=== PATIENT | male | born 1995 | race Caucasian/White ===

== ENCOUNTER → 2016-08-10 | Outpatient (CLI) | payer BC ==
--- NOTE | 2016-08-10 15:34 | DIAGNOSTIC IMAGING REPORT ---
RIGHT SHOULDER 3 VIEWS HISTORY: RIGHT SHOULDER PAIN Right COMPARISON: None. FINDINGS: There is no fracture or dislocation. Soft tissues are unremarkable. The right clavicle is intact. Right posterior rib deformities may be developmental or due to old, healed fractures. IMPRESSION: No acute fracture or dislocation within the right shoulder. Electronically signed by: Kt Bhatia M.D. 08/10/2016 3:33 PM Dictated Date/Time: 08/10/2016 3:31 PM
== END | disposition home or self-care (01) ==
LOC: C.RDSM 08:09
PROVIDERS: ATTEND Family Medicine
DX: M25.511 Pain in right shoulder (principal)

== ENCOUNTER → 2016-10-29 | Outpatient (CLI) | payer BC ==
--- NOTE | 2016-10-29 15:43 | DIAGNOSTIC IMAGING REPORT ---
MRI OF THE RIGHT SHOULDER CLINICAL HISTORY: Right shoulder pain. COMPARISON STUDY: Radiographs of the right shoulder dated 08/10/2016. TECHNIQUE: MRI of the right shoulder was performed utilizing various T1 and T2 weighted sequences in the axial, sagittal, coronal planes. IV contrast was not administered for this examination. The examination is modestly degraded by motion artifact. FINDINGS: Rotator cuff: The supraspinatus tendon appears intact. There is mild undersurface tearing suggested involving the infraspinatus tendon at the leading edge. This is best seen on coronal image #9 and sagittal image #4. No full-thickness tear is seen. The teres minor and subscapularis tendons are intact. There is trace subdeltoid bursal fluid. The acromioclavicular joint is unremarkable. Biceps tendon: The long head of the biceps tendon is normal in signal intensity and located within the bicipital groove. The anchor is maintained. Labrum: Grossly intact. Shoulder joint: There is no joint effusion. The articular cartilage over the glenoid is well maintained. Normal marrow signal intensity is preserved of the visualized osseous structures. Musculature and soft tissues: The musculature of the shoulder is normal in bulk and signal intensity. No atrophy is seen. IMPRESSION: 1. There is a partial-thickness undersurface tear suspected involving the infraspinatus tendon at the leading edge no full-thickness tear is seen. 2. The remainder of the rotator cuff appears intact. 3. No bony abnormality is seen. 4. There is trace nonspecific subdeltoid bursal fluid. Electronically signed by: Braulio Whitlock M.D. 10/29/2016 3:42 PM Dictated Date/Time: 10/29/2016 3:25 PM
== END | disposition home or self-care (01) ==
LOC: C.MRI 14:21
PROVIDERS: ATTEND Family Medicine
DX: M25.511 Pain in right shoulder (principal); R93.7 Abnormal findings on diagnostic imaging of other parts of musculoskeletal system

== ENCOUNTER → 2017-09-20 | Outpatient (CLI) | payer BC ==
--- NOTE | 2017-09-20 15:59 | DIAGNOSTIC IMAGING REPORT ---
CT PELVIS W/IV AND ORAL CONT (CT) CT DOSE: 175.21 mGy.cm CLINICAL HISTORY: Left leg swelling. Possible pelvic mass or blood clot. TECHNIQUE: The patient was scanned following administration of dilute oral contrast. The patient was scanned in a dynamic helical fashion following administration 115 cc of Optiray 320. A 2 minute delay was utilized to allow venous opacification. A dose lowering technique was utilized adhering to the principles of ALARA. COMPARISON STUDY: None. FINDINGS: There are no venous filling defects to indicate a pelvic DVT. No abnormal pelvic masses are visualized. There are mildly prominent mesenteric lymph nodes, statistically reactive. There is no iliac or inguinal lymphadenopathy. There is mild superficial edema within the proximal left thigh. Also noted is apparent hypertrophy of the fat within the proximal left thigh. This finding is of uncertain etiology. IMPRESSION: 1. Mild left pelvic and upper thigh edema 2. Unexplained hypertrophy of the fat within the proximal left thigh 3. No evidence of pelvic venous thrombosis 4. No pathologic pelvic masses. No inguinal or iliac lymphadenopathy. 5. Mildly prominent mesenteric lymph nodes, likely reactive Electronically signed by: Sreekanth Zuleta M.D. 09/20/2017 3:58 PM Dictated Date/Time: 09/20/2017 3:52 PM
== END | disposition home or self-care (01) ==
LOC: C.CTS 14:58
PROVIDERS: ATTEND Physician Assistant Medical
DX: M79.89 Other specified soft tissue disorders (principal)